=== PATIENT | female | born 1985 | race Caucasian/White ===

== ENCOUNTER 2018-01-10 17:53 | Emergency (ER) | payer MEDICAID, SELFPAY ==
[2018-01-10 17:54] VITALS: BP 140/78; PULSE 128; RESP 18; TEMP 37.2; O2SAT 99; BMI 25.3
--- NOTE | 2018-01-10 18:27 | EKG12_ITS ---
Test Reason : CP Blood Pressure : / mmHG Vent. Rate : 132 BPM Atrial Rate : 132 BPM P-R Int : 120 ms QRS Dur : 078 ms QT Int : 392 ms P-R-T Axes : 063 072 042 degrees QTc Int : 580 ms Sinus tachycardia Otherwise normal ECG Confirmed by DONY JAMISON, SHARLA ([id number]), writer editor MILLER CABRERA ([id number] on 01/12/2018 1:33:41 PM Referred By: YARY/AMARI Confirmed By:SHARLA NAPOLES MD
--- NOTE | 2018-01-10 18:35 | ED.VISSUMM ---
- ER Visit Summary Date of Service: 01/10/18 Chief Complaint: Palpitations History of Present Illness: The patient is a 32 F who presents with palpitations for the past week. Patient states she felt like her heart was racing. Patient states she feels like she has numbness in her abdomen and shoulders. Patient also admits to hypersensitivity of her lower extremities. Patient admits to pain in her chest. Patient describes it as sharp, aching, burning, heaviness, and tightness. Patient states it is constant. Patient admits to some nausea and vomiting. Patient denies any cough or fevers. Patient denies any diaphoresis. Patient is a smoker. Patient admits to a recent trip to [place] in October. Patient states her symptoms have gotten progressively worse since that time. Physical Examination: Vital signs are stable except for a tachycardia of 128. Patient is anxious on exam. Patient is afebrile. Oral mucosa is pink and moist. Neck is supple. Trachea is midline. There is no JVD. Heart was regular and tachycardic. Lungs were diminished bilaterally. There is limited respiratory effort. Abdomen is soft. There is some upper abdominal tenderness. There is no rebound or guarding noted. Cranial nerves II through XII are intact. There are no focal motor or sensory deficits noted. The remaining physical exam is within normal limits. Test Results: EKG showed sinus tachycardia with a rate of 132. There are no acute ST or T wave changes. Lactate was elevated at 5.4. CBC was normal. Basic metabolic profile shows sodium 131, potassium was 2.9, and chloride was 92. ALT was normal. AST was slightly elevated at 146. Alk phos was slightly elevated to 18. Urinalysis was within normal limits. CT scan of the abdomen and pelvis shows hepatomegaly with a question of hepatitis. There is also some ascites noted. Repeat lactate was obtained and was improved at 3.3. Hepatitis profile was obtained and is pending. Emergency Department Course and Treatment: Patient was given IV fluids and analgesics here. Patient's heart rate improved. Patient felt better and really wants to go home. Patient was given a prescription for a short course of [place]. Patient was instructed to drink plenty of fluids. Patient was instructed to follow-up with her primary care physician in 2-3 days. Patient was instructed to return if worse in any way. Patient understood and was agreeable with the plan. All questions were answered. Disposition: Discharged home Impression: Hepatomegaly, lactic acidosis This note was generated with [employer] dictation software. It may contain incorrect words, spelling, and punctuation that were not noted in review of the chart prior to signing ED Disposition - Plan for ED Patient: Disposition: Home or Assisted Living Chief Complaint: Palpitations Diagnosis: Hepatomegaly Instructions: ED Hepatitis Cause Unkn Test Pen Prescriptions: Hydrocodone Bitart/Apap 5-325 [[place] 5MG-325MG] 1 tab PO Q6H PRN PRN 3 Days #10 tab PRN Reason: Pain Referrals: NOT,DEFINED [NON-STAFF] -
[2018-01-10] MEDS: Morphine 2 MG/ML Syringe IV (18:45)
[2018-01-10] MEDS: 0.9% Normal Saline 1,000 ML 1000 ML IV ×2 (18:45→20:04)
[2018-01-10 18:50] LABS: Absolute Lymphocyte Count 1.55 X10^3/ul (0.83-4.51); Absolute Neutrophil Count 6.8 X10^3/uL (2.0-7.7); Basophil# 0.04 X10^3/uL; Basophil% 0.4 % (0-1); Eosinophil# 0.01 X10^3/uL; Eosinophils% 0.1 % (0-5); Hemoglobin 13.4 g/dl (12.0-15.0); Lymphocyte # 1.55 X10^3/ul (4.0); Lymphocyte % 15.8 % (19-41); Mean Corp Hgb Conc 33.5 g/gl (32-36); Mean Corpuscular Hgb 35.8 pg (27.0-32.0); Monocyte# 1.39 X10^3/uL; Monocyte% 14.2 % (0-10); Neutrophil # 6.79 X10^3/uL (2.7-7.7); Neutrophil % 69.4 % (47-70); POSITIVE COUNT NO; POSITIVE DIFFERENTIAL NO; POSITIVE MORPHOLOGY NO; Platelet Count 160 K/mm3 (150-450); RBC Distribution Width CV 13.9 % (11.6-14.6); RBC Distribution Width SD 54.3 fl (35.1-43.9); Red Blood Count 3.74 M/mm3 (4.2-5.4); White Blood Count 9.8 K/mm3 (4.4-11.0)
[2018-01-10 18:53] LABS: International Normalized Ratio 1.4; Prothrombin Time (Protime)PT. 17.4 SECONDS (11.7-14.9)
[2018-01-10 18:54] LABS: Partial Thromboplast Time 43.4 Seconds (24.1-36.2)
[2018-01-10 19:00] LABS: ALB/GLOB Ratio 0.6 RATIO (0.9-2.4); AST(SGOT) 146 U/L (15-37); Alanine Aminotransfer ALT/SGPT 42 U/L (13-56); Albumin, Serum 2.5 g/dL (3.2-5.0); Alkaline Phosphatase 218 U/L (45-117); Anion Gap 15 (5-15); BUN 3 mg/dL (7-18); BUN/Creat Ratio 4.3 RATIO (10-20); Chloride 92 mmol/L (98-107); Creatinine, Serum 0.69 mg/dL (0.55-1.02); EST Glomerular Filtration Rate 104 mL/min (>60); Est Glom Filt Rate - Afr Amer 125 mL/min (>60); Estimated Creatinine Clearance 100.14 ml/min; Globulin 4.5 g/dL (2.2-4.2); Glucose 132 mg/dL (74-106); Lipase 117 U/L (73-393); Potassium 2.9 mmol/L (3.5-5.1); Sodium Level 131 mmol/L (136-145)
[2018-01-10 19:30] LABS: Lactic Acid 5.4 mmol/L (0.4-2.0)
--- NOTE | 2018-01-10 19:31 | ED.RN ---
dr santamaria made aware of 5.4.
[2018-01-10 19:49] LABS: Mucous, Urine 0 SEEN /hpf (<or=2+); Red Blood Cells-Urine 0 SEEN /hpf (0-5); Squamous Epithelial Cells - UA 0 SEEN /hpf (5-10); White Blood Cells 0 SEEN /hpf (0-5)
[2018-01-10 19:51] LABS: Color, Urine Yellow (Yellow); Glucose, Dipstick Normal (Normal); Ketone-Dipstick Negative (Negative); Leukocyte Esterase-Dipstick 25 /ul (Negative); Nitrite-Dipstick Negative (Negative); Occult Blood-Urine Negative /ul (Negative); Protein-Dipstick Negative (Negative); Specific Gravity, Urine 1.005 (1.002-1.030); Urine Bilirubin Dipstick Negative (Negative); Urine Clarity Clear (Clear); Urine Urobilinogen Normal (Normal)
[2018-01-10] MEDS: Morphine 4 MG/ML Syringe IV (19:58)
[2018-01-10 19:59] LABS: Bacteria RARE /hpf (None Seen)
[2018-01-10 20:04] VITALS: BP 127/72; PULSE 106; RESP 20; TEMP 36.7; O2SAT 100
[2018-01-10 21:25] VITALS: BP 122/77; PULSE 107; RESP 15; O2SAT 98
[2018-01-10 21:56] LABS: Lactic Acid 3.3 mmol/L (0.4-2.0)
[2018-01-10 22:31] VITALS: BP 118/79; PULSE 102; RESP 20; O2SAT 98
[2018-01-10 22:49] LABS: Reflex Lactate? Y
[2018-01-11 01:25] LABS: Reflex Lactate? Y
[2018-01-12 06:07] LABS: HEPATITIS B SURFACE AG Negative (Negative); Hepatitis A AB, Total Negative (Negative); Hepatitis A IgM Antibody Negative (Negative); Hepatitis B Core AB IgM Negative (Negative); Hepatitis B Core Ab Total Negative (Negative); Hepatitis C Ab 0.1 s/co ratio (0.0-0.9)
[2018-01-13 11:49] LABS: Hep B Surface Antibodies Reactive (.)
== END 2018-01-10 22:32 | disposition home or self-care (01) ==
PROVIDERS: Emergency Provider Emergency Medicine
DX: R00.2 Palpitations (principal); R16.0 Hepatomegaly, not elsewhere classified; R18.8 Other ascites; E87.2 Acidosis; R07.9 Chest pain, unspecified; R11.2 Nausea with vomiting, unspecified; R00.0 Tachycardia, unspecified; G62.9 Polyneuropathy, unspecified; Z72.0 Tobacco use
CPT/HCPCS: 71275; 72191; 74175; 80053; 81001; 83605; 83690; 85025; 85610; 85730; 86704; 86705; 86706; 86708; 86709; 86803; 87340; 93005; 96361; 96374; 96376; 99285; J7030; Q9967; A4216